=== PATIENT | female | born 1985 | race Caucasian/White ===

== ENCOUNTER → 2020-07-22 10:10 | Outpatient (CLI) | payer OTHER, SELFPAY ==
[2020-07-04 10:56] VITALS: BMI 25.4
--- NOTE | 2020-07-22 10:12 | US_ITS ---
STUDY: ULTRASOUND OF THE FEMALE PELVIS - COMPLETE REASON FOR EXAM: Female, 34 years old. Menorrhagia. LMP: 07/05/2020. TECHNIQUE: Transabdominal and Transvaginal TECHNICAL QUALITY: Adequate. COMPARISON: None. FINDINGS: The uterus is anteverted and is in a midline position. The uterus measures 7.3 x 3.9 x 3.5 cm. Normal uterine cervix. The endometrium measures 13 mm in thickness, and is hyperechoic. There is no demonstrated endometrial mass. There is no demonstrated myometrial mass. I.U.D. - The patient does not have an I.U.D. The right ovary is visualized. The right ovary measures 2.6 x 1.9 x 1.6 cm. There is no right ovarian cyst or ovarian mass. There is no visualized right adnexal mass or complex lesion. There is normal arterial and normal venous vascularity. The left ovary is visualized. The left ovary measures 3.5 x 2.8 x 2.1 cm. There is a 1.4 x 1.4 x 1.3 cm left ovarian simple cyst. There is no visualized left adnexal mass or complex lesion. There is normal arterial and normal venous vascularity. There is no fluid in the cul-de-sac. The pre void volume of the bladder was 465 ml. The bladder is grossly normal. Polycystic ovary disease: No. US/Pelvic (Non ) IMPRESSION: 1. Prominent endometrium. Correlate with menstrual cycle. 2. Small left ovarian cyst versus dominant follicle. 3. Normal right ovary. Electronically Signed: Balbir Meyer DO at 23:51 EDT Tel [phone], Service support ,
--- NOTE | 2020-07-22 10:12 | US_ITS ---
STUDY: ULTRASOUND OF THE FEMALE PELVIS - COMPLETE REASON FOR EXAM: Female, 34 years old. Menorrhagia. LMP: 07/05/2020. TECHNIQUE: Transabdominal and Transvaginal TECHNICAL QUALITY: Adequate. COMPARISON: None. FINDINGS: The uterus is anteverted and is in a midline position. The uterus measures 7.3 x 3.9 x 3.5 cm. Normal uterine cervix. The endometrium measures 13 mm in thickness, and is hyperechoic. There is no demonstrated endometrial mass. There is no demonstrated myometrial mass. I.U.D. - The patient does not have an I.U.D. The right ovary is visualized. The right ovary measures 2.6 x 1.9 x 1.6 cm. There is no right ovarian cyst or ovarian mass. There is no visualized right adnexal mass or complex lesion. There is normal arterial and normal venous vascularity. The left ovary is visualized. The left ovary measures 3.5 x 2.8 x 2.1 cm. There is a 1.4 x 1.4 x 1.3 cm left ovarian simple cyst. There is no visualized left adnexal mass or complex lesion. There is normal arterial and normal venous vascularity. There is no fluid in the cul-de-sac. The pre void volume of the bladder was 465 ml. The bladder is grossly normal. Polycystic ovary disease: No. US/Transvaginal Non- IMPRESSION: 1. Prominent endometrium. Correlate with menstrual cycle. 2. Small left ovarian cyst versus dominant follicle. 3. Normal right ovary. Electronically Signed: Balbir Meyer DO at 23:51 EDT Tel [phone], Service support ,
== END ==
PROVIDERS: PCP Internal Medicine; Referring Provider Obstetrics & Gynecology; Visit Provider Obstetrics & Gynecology
DX: N92.0 Excessive and frequent menstruation with regular cycle (principal)
CPT/HCPCS: 76830; 76856

== ENCOUNTER 2021-06-13 09:35 | Outpatient (CLI) | payer OTHER, SELFPAY ==
[2021-06-19 13:59] LABS: HPV APTIMA, High Risk Negative (Negative)
== END 2021-06-13 23:59 | disposition home or self-care (01) ==
LOC: LABSPEC 09:37
PROVIDERS: PCP Internal Medicine; Visit Provider Nurse Practitioner Women's Health
DX: Z12.4 Encounter for screening for malignant neoplasm of cervix (principal)
CPT/HCPCS: 87624; 88175; G0145